=== PATIENT | female | born 1955 | race Caucasian/White ===

== ENCOUNTER → 2018-05-07 | Outpatient (CLI) | payer BC ==
[2018-05-07 09:07] LABS: Basophils # (auto) 0.1 uL; Basophils % (auto) 1.2 % (0.0-2.0); Eosinophils # (auto) 0.1 uL; Eosinophils % (auto) 1.3 % (0.0-7.0); Hematocrit 38.2 % (36.0-46.0); Hemoglobin 12.2 g/dL (12.2-16.2); Lymphocytes # (auto) 1.2 uL; Lymphocytes % (auto) 27.2 % (10.0-50.0); Mean Corpuscular Hemoglobin 29.1 pg (28.0-32.0); Mean Corpuscular Hgb Conc. 31.9 g/dL (32.0-36.0); Mean Corpuscular Volume 91.3 fL (80.0-100.0); Monocytes # (auto) 0.5 uL; Monocytes % (auto) 10.3 % (0.0-12.0); Neutrophils # (auto) 2.7 uL; Platelet Count (auto) 419 10^3/uL (140-450); Red Blood Cells 4.18 10^6/uL (4.0-5.20); Red Cell Distribution Width 13.5 % (11.8-14.3); White Blood Cell 4.5 10^3/uL (4.4-10.8)
[2018-05-07 09:22] LABS: Urine Bacteria NONE SEEN /hpf (None Seen); Urine Blood Negative /uL (Negative); Urine Specific Gravity 1.018 (1.001-1.035); Urine WBC 49 /hpf (0 - 5)
[2018-05-07 09:41] LABS: Potassium 3.9 mmol/L (3.5-5.1)
[2018-05-07 09:47] LABS: Albumin 3.5 g/dL (3.4-5.0); BUN/Creatinine Ratio 12.2; Bilirubin, Total 0.3 mg/dL (0.2-1.0); Total Protein 7.3 g/dL (6.4-8.2); Uric Acid 2.9 mg/dL (2.6-6.0)
[2018-05-07 10:00] LABS: Free T4 (Free Thyroxine) 1.12 ng/dL (0.89-1.76)
[2018-05-07 10:01] LABS: T3 Total 0.91 ng/mL (0.60-1.81)
[2018-05-07 10:23] LABS: Folate (Folic Acid) 22.54 ng/mL (5.38-24)
== END | disposition home or self-care (01) ==
LOC: LAB 08:29
PROVIDERS: ATTEND Nurse Practitioner
DX: E78.5 Hyperlipidemia, unspecified (principal)
CPT/HCPCS: 36415; 80053; 80061; 81001; 82306; 82607; 82746; 83036; 84403; 84439; 84443; 84480; 84550; 85025